=== PATIENT | male | born 1960 | race Caucasian/White ===

== ENCOUNTER 2023-07-12 08:35 | Day surgery (SDC) | payer BC ==
[2023-07-10 15:18] VITALS: BMI 21.8
[2023-07-12] MEDS ORDERED: LACTATED RINGERS 1,000 ML IV ONE (10:23)
[2023-07-12] MEDS ORDERED: LIDOCAINE 1% INJ 10MG/ML (20 ML MDV) ONE (10:28)
[2023-07-12] MEDS ORDERED: PROPOFOL 10 MG/ML 20 ML VIAL IV ONE (10:28)
--- NOTE | 2023-07-12 10:31 | P.GSHP ---
History of Present Illness H&P Date: 07/12/23 Chief Complaint: History of pharyngeal cancer This a 63-year-old male who's recently diagnosed pharyngeal cancer. Patient is developed dysphagia. Presents today for EGD with PEG tube placement. Past Medical History Past Medical History: Cancer, Osteoarthritis (OA), Prostate Disorder Additional Past Medical History / Comment(s): Current tongue cancer, no treatment yet. "BP high normal lately". Enlarged prostate. History of Any Multi-Drug Resistant Organisms: None Reported Additional Past Surgical History / Comment(s): Tongue biopsy. Past Anesthesia/Blood Transfusion Reactions: Previous Problems w/ Anesthesia Additional Past Anesthesia/Blood Transfusion Reaction / Comment(s): Difficult intubatuion with tongue biopsy, patient cannot open mouth very wide. Past Psychological History: No Psychological Hx Reported Smoking Status: Never smoker Past Alcohol Use History: Daily Additional Past Alcohol Use History / Comment(s): Chewed tobacco for 20+ yrs, quit 09/2022. Drinks 1-2 beers daily. Informed no alcohol 24 hrs prior to procedure. Past Drug Use History: None Reported - Past Family History Mother Family Medical History: Cancer Additional Family Medical History / Comment(s): Lung cancer. Sister(s) Family Medical History: Cancer Additional Family Medical History / Comment(s): Lung cancer, mets to brain. Medications and Allergies Home Medications Medication Instructions Recorded Confirmed Type Acetaminophen [Tylenol Extra 500 - 1,000 mg PO Q4-6H PRN 07/10/23 07/12/23 History Strength] Allergies Allergy/AdvReac Type Severity Reaction Status Date / Time No Known Allergies Allergy Verified 07/12/23 10:04 Surgical - Exam Vital Signs Temp Pulse Resp BP Pulse Ox 97.8 F 87 16 164/93 98 07/12/23 10:04 07/12/23 10:04 07/12/23 10:04 07/12/23 10:04 07/12/23 10:04 - General well developed, well nourished, no distress - Eyes PERRL - ENT Patient is unable to open his jaw significantly. normal pinna - Neck no masses - Respiratory normal expansion - Cardiovascular Rhythm: regular - Abdomen Abdomen: soft, non tender Assessment and Plan Assessment: History of pharyngeal cancer. We'll perform EGD with possible PEG tube placed. Patient's aware that if I'm unable to pass the endoscope he will be able to have his PEG tube placed.
--- NOTE | 2023-07-12 10:35 | P.PN ---
Progress Note - Text Progress Note Date: 07/12/23 The patient received some IV sedation. The procedure was canceled due to the patient's inability to open his mouth. Patient will need to have a surgical feeding tube placed.
[2023-07-12 10:41] VITALS: RESP 16; TEMP 97.8
[2023-07-12 11:04] VITALS: BP 135/87; PULSE 75
== END 2023-07-12 11:30 | disposition home or self-care (01) ==
LOC: ORWHC2ENDO 08:35
PROVIDERS: ATTEND Surgery
DX: Z53.8 Procedure and treatment not carried out for other reasons (principal); M19.90 Unspecified osteoarthritis, unspecified site; N42.9 Disorder of prostate, unspecified; N40.0 Benign prostatic hyperplasia without lower urinary tract symptoms; Z79.1 Long term (current) use of non-steroidal anti-inflammatories (NSAID); Z85.810 Personal history of malignant neoplasm of tongue; Z80.1 Family history of malignant neoplasm of trachea, bronchus and lung; Z85.818 Personal history of malignant neoplasm of other sites of lip, oral cavity, and pharynx
CPT/HCPCS: 43246; J2001; J2704

== ENCOUNTER → 2023-07-12 | Outpatient (CLI) | payer BC ==
--- NOTE | 2023-07-12 09:41 | CT ---
EXAMINATION TYPE: CT neck DATE OF EXAM: 07/12/2023 COMPARISON: PET/CT 06/22/2023 HISTORY: tongue cancer CT DLP: 1236 mGycm CONTRAST: Patient injected with 100 mL of Isovue 300. TECHNIQUE: Axial images at 3 mm thick sections. Reconstructed images in the coronal plane and sagitt al plane are reviewed. FINDINGS: Limited CT sections are obtained the lung apices. The lung apices appear clear. CT neck: The torus tubarius and fossa of Rosenmuller are normal. Foundry Tender spaces are normal. Ther e is mucosal thickening within the right maxillary sinus. Some mild mucosal thickening is within a po sterior left ethmoid air cell. Remaining paranasal sinuses and mastoid air cells within the field of view are clear. Parotid glands appear normal and symmetrical. Submandibular glands, are normal. Parapharyngeal spac es are normal. Within the jugulodigastric region there are 2 large circumscribed densities with hypodense centers cerda spicious for abnormal lymphadenopathy. The larger has a transverse dimension of 1.7 cm the smaller of the transverse dimension of 1.4 cm. Abnormal lymphadenopathy should be considered. Additional workup is recommended. There is asymmetric soft tissue thickening through the inferior left hypopharynx. This area is intens e knee PET scan compatible with neoplasm. There is fullness through the left posterior tongue compati ble with neoplasm. This area is hyperintense on the pet imaging Vocal cord level appear symmetrical as visualized. Thyroid as visualized is normal. Osseous structures are normal. IMPRESSION: 1. There is marked fullness through the left posterior tongue and some asymmetric fullness within the inferior left hypopharynx compatible with the patient's neoplasm. These areas were intense on the re cent PET/CT. 2. Hypodense centered lymphadenopathy within the right jugulodigastric region. This could be related to treated lymphadenopathy. These areas are likely related to metastasis.
== END | disposition home or self-care (01) ==
LOC: RADCTMAIN 08:28
PROVIDERS: ATTEND Radiology Radiation Oncology
DX: C01 Malignant neoplasm of base of tongue (principal); R59.0 Localized enlarged lymph nodes
CPT/HCPCS: 70491; 71260; Q9967

== ENCOUNTER → 2023-12-13 | Outpatient (CLI) | payer BC ==
--- NOTE | 2023-12-14 12:07 | CT ---
EXAMINATION TYPE: CT soft tissue neck wo/w con DATE OF EXAM: 12/13/2023 COMPARISON: 07/12/2023, PET/CT 12/13/2023 HISTORY: follow up ca for base of tongue CT DLP: 722.8 mGycm CONTRAST: Patient injected with 100 mL of Isovue 300. TECHNIQUE: Axial images at 3 mm thick sections. Reconstructed images in the coronal plane and sagitt al plane are reviewed. FINDINGS: Limited CT sections are obtained the lung apices. The lung apices appear clear. CT neck: The torus tubarius and fossa of Rosenmuller are normal. Broadcasting Equipment Mechanic spaces are normal. Ther e is some mucosal thickening within the lateral right maxillary sinus. Remaining paranasal sinuses wi thin the field of view are clear. Mastoid air cells are clear. Parotid glands appear normal and symmetrical. Submandibular glands, are normal. Parapharyngeal spac es are normal. No suspicious adenopathy is evident. A previous abnormal right parotid lymph node not identified. There is some asymmetry of the posterior left hypopharynx. Epiglottis appears normal. Vocal cord level is closed during this examination was somewhat limited visualization. Subglottic air way appears normal. Thyroid as visualized is normal. Osseous structures are normal. IMPRESSION: 1. Mild soft tissue asymmetry within the left hypopharynx. Finding appears stable from comparison. No suspicious interval change.
--- NOTE | 2023-12-16 14:18 | PE ---
EXAMINATION TYPE: PET CT fusion skull to thigh DATE OF EXAM: 12/13/2023 COMPARISON: 12/13/2023 Prior PET/CT: 06/22/2023 HISTORY: The base of tongue cancer TECHNIQUE: Following the intravenous administration of 7.76 mCi of F-18 FDG, whole body images are p erformed from the skull base to the midthigh. Images are reviewed on the computer in the coronal, ax ial, and sagittal planes. Reconstructed rotating images are created on independent workstation and r eviewed on the computer. A localization and attenuation correction CT is performed in conjunction w ith the PET scan. DLP: 418.9 mGycm SCAN: Subsequent Blood glucose: 90 mg/dL Average Mediastinum SUV: 2.04 Average Liver SUV: 2.62 FINDINGS: Dedicated head and neck imaging was performed. Some mild faint uptake is in the central soft tissues posterior to the vocal cord level. Example image 58 SUV 6.53. NECK: There is increased uptake at the posterior vocal cord level, image 46, SUV 6.35 THORAX: No abnormal uptake ABDOMEN: No abnormal uptake PELVIS: There is a punctate area of increased signal within the soft tissues just anterior to the rig ht hip. Image 223, SUV 4.84. Soft tissue lesion should be considered. OSSEOUS STRUCTURES: No abnormal uptake LOCALIZATION CT: PEG tube is present. COMPARISON: Previous uptake within the left posterior tongue and tonsillar pillar is absent on the cu rrent examination. The lymph node on the left is not identified on the current examination. IMPRESSION: 1. No suspicious uptake within the posterior left tongue or left neck. Previous uptake is resolved. 2. There is some new mild uptake centrally posterior to the vocal cord level of uncertain significanc e. 3. There is a punctate area of uptake anterior to the right hip. This is nonspecific. Solitary metast asis would be unusual.
== END | disposition home or self-care (01) ==
LOC: RADCTMAIN 08:32
PROVIDERS: ATTEND Radiology Radiation Oncology
DX: C77.0 Secondary and unspecified malignant neoplasm of lymph nodes of head, face and neck (principal); C01 Malignant neoplasm of base of tongue; J39.2 Other diseases of pharynx
CPT/HCPCS: 78815; 70492; A9552; Q9967

== ENCOUNTER → 2024-06-06 | Outpatient (CLI) | payer BC ==
--- NOTE | 2024-06-07 11:29 | CT ---
EXAMINATION TYPE: CT neck without contrast. CT neck with contrast. CT DLP: 769 mGycm, Automated exposure control for dose reduction was used. DATE OF EXAM: 06/06/2024 9:55 AM COMPARISON: Pet/CT same day. 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 Axial sections with coronal and sagittal reformats were obtained. Contrast used: 100 cc Isovue-300. Oral contrast used: (None if empty) FINDINGS: Brain: Visualized portions are grossly unremarkable. Orbits: Unremarkable Sinuses: Grossly unremarkable. Spaces of the neck: No clear correlate for same day PET/CT focus of uptake within the left masseter s pace near the left mandible. There is a low-density area within this region however streak artifact l imits evaluation. The remainder of the neck is relatively clear and symmetric no enlarged lymph nodes visualized. Posttreatment changes to the neck remain. Musculoskeletal: No acute osseous pathology. Lymph nodes: Multiple nonenlarged lymph nodes are seen along both anterior chains of the neck. Vascular structures: Visualized major arteries are patent without evidence of aneurysm. Thoracic Inlet/airway: Airway is patent. The lung apices are clear. Soft tissues/Thyroid: Thyroid and remainder of the soft tissues are unremarkable. Other: none. IMPRESSION Focus of uptake within the left masseter space which is poorly visualized on noncontrast CT. Attentio n on short-term follow-up MRI face with IV contrast. [facility], , 06/07/2024 11:26 AM
== END | disposition home or self-care (01) ==
LOC: RADCTMAIN 09:02
PROVIDERS: ATTEND Radiology Radiation Oncology
DX: Z00.6 Encounter for examination for normal comparison and control in clinical research program (principal); C77.0 Secondary and unspecified malignant neoplasm of lymph nodes of head, face and neck; C01 Malignant neoplasm of base of tongue
CPT/HCPCS: 70492

== ENCOUNTER → 2024-06-06 | Outpatient (CLI) | payer BC ==
--- NOTE | 2024-06-07 11:25 | PE ---
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 Images are reviewed on the computer in the coronal, ax ial, and sagittal planes. Reconstructed rotating images are created on independent workstation and r eviewed on the computer. A non-contrast CT is performed in conjunction with the PET scan. Glucose l evel 98 mg/dL CT DLP: 382 mGycm, Automated exposure control for dose reduction was used. COMPARISON: CT 06/06/2024, PET/CT 12/13/2023, MRI: None FINDINGS: Mediastinal SUV mean is 2.5. Hepatic parenchyma SUV mean is 2.6. SKULL BASE AND NECK: New focus of uptake within the left call manager space max SUV 6.2. Difficult to evaluate on both CT co ntrast and noncontrast PET. CHEST, MEDIASTINUM, AND HILAR REGION: No suspicious radiotracer activity. ABDOMEN AND PELVIS: No suspicious radiotracer activity. MUSCULOSKELETAL STRUCTURES: No suspicious radiotracer activity. OTHER CT: Colonic diverticulosis. Prostatomegaly. Excreted IV contrast in the bladder lumen, there ar e bladder trabeculations. Correlate for chronic bladder outlet obstruction from prostatomegaly. Degen eration changes of the hips with joint space narrowing and osteophytes worse on the left. IMPRESSION: 1. New focus of uptake in the left masseter space which is difficult to evaluate given noncontrast t echnique. CT Scan same day is possibly within the muscle. Attention on short-term follow-up MRI face with IV contrast. 2. Trabeculated urinary bladder correlate for chronic bladder outlet obstruction from BPH. 3. Severe hip osteoarthrosis. [facility], Workstation: [id number], 06/07/2024 11:22 AM
== END | disposition home or self-care (01) ==
LOC: RADPETMAIN 09:05
PROVIDERS: ATTEND Radiology Radiation Oncology
DX: C01 Malignant neoplasm of base of tongue (principal); C77.0 Secondary and unspecified malignant neoplasm of lymph nodes of head, face and neck; M16.0 Bilateral primary osteoarthritis of hip; Z00.6 Encounter for examination for normal comparison and control in clinical research program
CPT/HCPCS: 78815

== ENCOUNTER → 2024-06-25 | Outpatient (CLI) | payer BC ==
--- NOTE | 2024-07-02 09:17 | MR ---
EXAMINATION TYPE: MR neck wo/w con DATE OF EXAM: 06/25/2024 3:17 PM CLINICAL INDICATION: Male, 64 years old with history of C01 MALIGNANT NEOPLASM OF BASE OF TONGUE C00. 6 MAL; PHH, Malignant neoplasm at base of tongue, left side. history of radiation and chemo to neck. COMPARISON: Pet/CT 06/06/2024. TECHNIQUE: Multi planar, multi sequence imaging was performed of the neck soft tissues. MR contrast: IV Contrast: 6.5 cc Gadavist FINDINGS: Just inside the left mandible is a heterogenous area in what is thought to be an muscle, the medial p terygoid muscle. Postcontrast images is slightly limited due to poor fat saturation. There is some ed navya on fluid sensitive sequences within this region no lymphadenopathy definitively visualized on mas s identified. The glottis appears unremarkable. The cervical vertebral bodies have preserved heights and alignment . Multilevel disc desiccation and anterior osteophytosis are present. The cervical spinal cord demo nstrates a normal appearance. IMPRESSION: Heterogenous appearance of an area seen on pet/CT the medial margin of the left mandible. Post contra st imaging is limited due to poor fat saturation To be some edema within this region possibly post radiation changes. No definitive solid mass or lymp hadenopathy. Continued attention on follow-up PET/CT. [facility], , 07/02/2024 9:15 AM
== END | disposition home or self-care (01) ==
LOC: RADMRIMAIN 14:03
PROVIDERS: ATTEND Radiology Radiation Oncology
CPT/HCPCS: 70543

== ENCOUNTER → 2024-11-24 | Outpatient (CLI) | payer BC ==
--- NOTE | 2024-11-24 15:18 | CT ---
EXAMINATION TYPE: CT neck chest w con CT DLP: 853 mGycm, Automated exposure control for dose reduction was used. DATE OF EXAM: 11/24/2024 3:00 PM COMPARISON: MR neck 06/25/2024, CT soft tissue neck 06/06/2024, 12/13/2023, PET CT 06/06/2024, 12/13/2023, CT neck chest 07/12/2023. 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 Axial sections with coronal and sagittal refo rmats were obtained. Contrast used:100ml mL of Isovue 300 with IV Contrast, (none if empty) FINDINGS: BRAIN: Visualized portions are grossly unremarkable. ORBITS: Unremarkable SINUSES: Grossly unremarkable. SPACES OF THE NECK: There is redemonstration of 1.1 cm region of hypodensity with thin the left masti cator space near the left mandible again. Demonstrated some FDG activity in prior PET/CT. The remaind er of the neck is relatively clear symmetric. MUSCULOSKELETAL: No acute osseous pathology. No aggressive osseous lesion. LYMPH NODES: No lymphadenopathy. VASCULAR STRUCTURES: Visualized major arteries are patent without evidence of aneurysm. THORACIC INLET/AIRWAY: Airway is patent. The lung apices are clear. SOFT TISSUES/THYROID: Thyroid and remainder of the soft tissues are unremarkable. OTHER: none. LUNGS/ PLEURA: No pleural effusion, pneumothorax, or focal consolidation. No suspicious pulmonary nod ule or mass. AIRWAY: Patent and unremarkable. HEART: Size within normal limits.Mild coronary arterial calcifications. No pericardial effusion. MEDIASTINUM: No evidence of adenopathy. VASCULATURE: No aortic aneurysm. MUSCULOSKELETAL: No acute osseous abnormalities. Mild multilevel degenerative disc disease. No aggres sive osseous lesion. SOFT TISSUES/LYMPH NODES: Unremarkable. LOWER NECK: No significant findings. UPPER ABDOMEN: Stable pancreatic neck 7 mm cystic lesion (series 8, image 82). IMPRESSION: 1. Stable hypodense 1.1 cm region within the left reinforcing bar setter space. Demonstrated FDG activity in prio r PET/CT and is concerning for residual malignancy. 2. No CT evidence for metastasis within the chest. 3. Stable pancreatic neck 7 mm cystic lesion probably representing a side branch IPMN versus pseudocy st. Consider further evaluation with MRI abdomen pancreatic mass protocol as clinically indicated. [facility], , 11/24/2024 3:16 PM
== END | disposition home or self-care (01) ==
LOC: RADCTMAIN 14:32
PROVIDERS: ATTEND Internal Medicine
DX: C10.9 Malignant neoplasm of oropharynx, unspecified (principal); K86.2 Cyst of pancreas
CPT/HCPCS: 70491; 71260; Q9967

== ENCOUNTER → 2024-12-08 | Outpatient (CLI) | payer BC ==
--- NOTE | 2024-12-08 19:33 | MR ---
EXAMINATION TYPE: MR neck wo/w con DATE OF EXAM: 12/08/2024 6:52 PM COMPARISON: CT 11/24/2024, consisting 24, 06/06/2024. 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 IV Contrast: 7 mL Gadobutrol FINDINGS: Redemonstration of heterogenous mass of the soft tissues in the medial to the left mandible area part icularly the medial pterygoid muscle. Similar appearance of the postcontrast images in this region no new or enlarging lymph nodes identified. There is some edema on fluid sensitive sequences within th is region, no lymphadenopathy definitively visualized more mass identified. The glottis appears unrem arkable. The cervical vertebral bodies have preserved heights and alignment. The cervical spinal co rd demonstrates a normal appearance. IMPRESSION: Similar MRI appearance with heterogenous area on the medial margin of the left mandible. Overall appe arance of this region is not all that different from prior 06/25/2024 MRI with suspected posttreatmen t change present. There is edema also present and similar sequences no new or enlarging lymph nodes i dentified. Follow-up PET/CT may be of benefit. [facility], , 12/08/2024 7:31 PM
== END | disposition home or self-care (01) ==
LOC: RADMRIMAIN 17:44
PROVIDERS: ATTEND Internal Medicine
DX: C10.9 Malignant neoplasm of oropharynx, unspecified (principal); R60.9 Edema, unspecified
CPT/HCPCS: 70543; A9585

== ENCOUNTER → 2025-01-08 | Outpatient (CLI) | payer BC ==
--- NOTE | 2025-01-13 15:58 | PE ---
EXAMINATION TYPE: PET CT fusion skull to thigh DATE OF EXAM: 01/08/2025 COMPARISON: MRI Neck 12/08/2024 Prior PET/CT: 06/06/2024 CLINICAL INDICATION: Male, 64 years old with history of C01 TONGUE CANCER, TECHNIQUE: Following the intravenous administration of 9.62 mCi of F-18 FDG, whole body images are p erformed PET CT fusion skull to thigh. Dedicated head and neck imaging is performed. Images are revie wed on the computer in the coronal, axial, and sagittal planes. Reconstructed rotating images are cr eated on independent workstation and reviewed on the computer. A localization and attenuation corre ction CT is performed in conjunction with the PET scan. DLP: 635 mGycm SCAN: Subsequent Scan Blood glucose: 106 mg/dL Average Mediastinum SUV: 2.56 Average Liver SUV: 2.68 FINDINGS: HEAD & NECK: Uptake at the angle of the jaw has persistent uptake, image 40, 68.08. NECK: Persistent Intense uptake at the medial angle of the mandible on the left. This has an SUV of 7.73. Previous uptake 8.55 Image 44 this extends adjacent to the mandible. New lateral contiguous upt melissa is present. THORAX: No suspicious uptake ABDOMEN: No suspicious uptake PELVIS: No suspicious uptake OSSEOUS STRUCTURES: No suspicious uptake LOCALIZATION CT: Regarding artifact is present at the left hip prosthesis. COMPARISON: Previous medial posterior uptake in the posterior left tongue is significantly diminished over the interval. The uptake internal to the angle of the jaw was present previously. Uptake extend ing lateral to the angle of the jaw is new. Previous left parotid region lymph node uptake is not norberto ntified on the current exam. The more inferior punctate uptake is not identified currently. IMPRESSION: 1. Posterior left tongue uptake is largely resolved. 2. There is some residual uptake medial to the left angle of the jaw. No extension to the lateral asp ect of the angle of the jaw is evident. 3. Previous parotid region and left neck region lymphadenopathy with uptake is not evident on the cur rent exam. 4. Distant metastases is not identified. [facility], , 01/13/2025 3:56 PM
== END | disposition home or self-care (01) ==
LOC: RADPETMAIN 07:08
PROVIDERS: ATTEND Student in an Organized Health Care Education/Training Program
DX: C01 Malignant neoplasm of base of tongue (principal)
CPT/HCPCS: 78815; A9552

== ENCOUNTER → 2025-03-11 | Outpatient (CLI) | payer BC ==
--- NOTE | 2025-03-11 12:47 | FL ---
EXAMINATION TYPE: FL barium swallow w video DATE OF EXAM: 03/11/2025 CLINICAL HISTORY: 64-year-old male C10.9, unspecified malignant neoplasm of the oropharynx. Patient w ith history of tongue base cancer status post surgery and recent mandibular resection for local recur rence. Patient currently NPO. TECHNIQUE: Deglutition study is performed utilizing nectar thick liquid barium and barium thick pudd ing. Total fluoroscopy time 1 minute 28 seconds. Total images: None. Real-time fluoroscopy support was provided to speech pathology. Total DAP: 75 mGycm2. COMPARISON: None. FINDINGS: There is an incomplete swallow demonstrated. Michael aspiration with nectar liquid. Prominent vallecula r and piriform sinus residuals. There is penetration with pudding. The exam was stopped at this point . IMPRESSION: Nonfunctional swallow. Only nectar and pudding was tested before the exam was stopped. There is michael aspiration with nectar liquid. Penetration with pudding. Vallecular and piriform sinus residuals. Please refer to speech therapist notes for further details if necessary. [facility], , 03/11/2025 12:45 PM
== END | disposition home or self-care (01) ==
LOC: RADFLMAIN 11:19
PROVIDERS: ATTEND Otolaryngology
DX: C10.9 Malignant neoplasm of oropharynx, unspecified (principal)
CPT/HCPCS: 74230